=== PATIENT | male | born 1955 | race Asian ===

== ENCOUNTER 2016-07-09 08:00 | Emergency (ER) | payer OTHER ==
[~2016-07-09] VITALS: Ht 175.3 cm; Wt 77.3 kg
[2016-07-09 08:03] VITALS: Ht 175.3 cm; Wt 77.3 kg
[2016-07-09] MEDS ORDERED: VANCOMYCIN 1 GM (PMX) 250 ML IVPB STA (08:10)
[2016-07-09] MEDS ORDERED: SODIUM CHLORIDE 0.9% 1L BAG IV* STA (08:10)
[2016-07-09] MEDS ORDERED: PIPER-TAZO 3.375 GM IV (PMX) 100 ML IVPB STA (08:10)
[2016-07-09] MEDS ORDERED: CLINDAMYCIN 900 MG/D5W (PMX) 50 ML IVPB STA (08:10)
--- NOTE | 2016-07-09 08:59 | ERA ---
ER Documentation Chief Complaint Date/Time DATE: 07/09/16 TIME: 08:54 Chief Complaint BROUGHT IN VIA EMS FROM HOME DUE TO LEFT LEG WOUND AND HYPOGLYCEMIA HPI 60-year-old male who presents via EMS with multiple issues. It appears the patient was found laying in a parking garage of his apartment. EMS reports that his apartment was in shambles. His neighbors state that the patient has not been able to care for himself. Patient has significant wound to the left lower extremity that appears to be subacute and chronic. The patient was hypoglycemic in the field and given dextrose. The patient cannot provide adequate history. He does not know why he was in the parking garage. He denies any pain. He is somewhat limited with his history and his responses but is alert and oriented and conversive. He states that no symptoms currently. Remainder of HPI is extremely limited. ROS All systems reviewed and are negative except as per history of present illness. Allergies Allergies: Coded Allergies: No Known Allergy (Unverified , 07/09/16) PMhx/Soc Patient does not recall Smoking Status: Never smoker FmHx Patient does not recall Physical Exam Vitals Vital Signs Date Time Temp Pulse Resp B/P Pulse Ox O2 Delivery O2 Flow Rate FiO2 07/09/16 11:19 102 158/132 Nasal Cannula 07/09/16 09:30 94 20 140/89 99 Nasal Cannula 07/09/16 08:35 Nasal Cannula 2 07/09/16 08:03 98.8 99 18 101/53 96 Physical Exam General: Extremely disheveled, dirty however conversive and in no distress Head: Normocephalic, atraumatic. Eyes: Pupils equally reactive, EOM intact ENT: Moist mucous membranes Neck: Supple, no lymphadenopathy, No midline tenderness, deformities, step-offs to the cervical spine, full active and passive range of motion without midline pain. Respiratory: Lungs clear bilaterally, no distress Cardiovascular: RRR, no murmurs, rubs, or gallops Abdominal: Soft, non-tender, non-distended, no peritoneal signs : Deferred MSK: The patient's left lower extremity has significant swelling mostly distal to the knee around the morales and calf area. The patient has significant erythema , open wounds and drainage that appear to be subacute. He has a slightly dusky left foot with a temperature deficit though both bilateral feet are cooler. Very subtle pulses are noted to the left foot as well as the right foot though right is certainly more palpable than the left. The patient has erythema to the left lower extremity that streaks up towards the groin. Unilateral swelling is noted. Neurologic: Alert and oriented though slow to respond, moving all extremities, normal speech, no focal weakness, no cerebellar signs Skin: Left lower extremity as described above Psych: Normal mood Result Diagram: 07/09/16 0833 07/09/16 0833 Results 24 hrs Laboratory Tests Test 07/09/16 08:10 07/09/16 08:27 07/09/16 08:33 Arterial Blood HCO3 11.6mmol/L Arterial Blood Base Excess -12.9mmol/L Arterial Blood Oxygen Saturation 91.6mmHG Amadou Test N/A Arterial Blood Gas Puncture Site Right Brachial Arterial Blood Carboxyhemoglobin 0.3% Arterial Blood Date Drawn 07/09/2016 9:20:39 AM Arterial Blood Methemoglobin 0.6% Arterial Blood pCO2 (Temp correct) 24.4mmhg Arterial Blood pH (Temp corrected) 7.296 Arterial Blood pO2 (Temp corrected) 73.6mmHG Blood Gas A-a O2 Differential 133.2mmHg Blood Gas Critical Value Read Back DR VALLES Blood Gas Modality NASAL CANNULA Blood Gas Notified Time 07/09/2016 9:34:19 AM Blood Gas Notified Whom RT Blood Gas Specimen Source Blood arterial Blood Gas Temperature 37.0C FiO2 33.0% Oxyhemoglobin Percent 90.8% Total Hemoglobin 13.9g/dl Bedside Glucose 106mg/dL Activated Partial Thromboplast Time 36.9Sec Alanine Aminotransferase (ALT/SGPT) 93IU/L Albumin 2.3g/dl Albumin/Globulin Ratio 0.74 Alkaline Phosphatase 169IU/L Anion Gap 32 Aspartate Amino Transf (AST/SGOT) 201IU/L Band Neutrophils % 22.0% Blood Morphology Comment Blood Urea Nitrogen 74mg/dl C-Reactive Protein 42.3mg/dl Calcium Level 6.7mg/dl Carbon Dioxide Level 12mmol/L Chloride Level 85mmol/L Creatine Kinase IU/L Creatinine 5.11mg/dl Direct Bilirubin 2.00mg/dl Globulin 3.10g/dl Glucose Level 103mg/dl Hematocrit 43.0% Hemoglobin 14.6g/dl INR International Normalized Ratio 1.61 Indirect Bilirubin 0.5mg/dl Lactic Acid Level 10.3mmol/L Lipase 42U/L Lymphocytes # 1.610^3/ul Lymphocytes % 4.0% Mean Corpuscular Hemoglobin 32.3pg Mean Corpuscular Hemoglobin Concent 34.0g/dl Mean Corpuscular Volume 94.9fl Mean Platelet Volume 10.8fl Monocytes # 0.410^3/ul Monocytes % 1.0% Neutrophils # 29.510^3/ul Neutrophils % 73.0% Platelet Count 07605^3/UL Potassium Level 4.9mmol/L Prothrombin Time 19.3Sec Prothrombin Time Ratio 1.5 Red Blood Count 4.5310^6/ul Red Cell Distribution Width 13.6% Sodium Level 124mmol/L Total Bilirubin 2.5mg/dl Total Protein 5.4g/dl Troponin I 0.032ng/ml White Blood Count 40.410^3/ul Current Medications Medications (Trade) Dose Ordered Sig/Huan Route PRN Reason Start Time Stop Time Status Last Admin Dose Admin Sodium Chloride 2400 ml 2,400 ml BOLUS OVER 2 HOURS STAT IV* 07/09/16 08:10 07/09/16 08:13 DC 07/09/16 08:42 Vancomycin HCl 250 ml @ 125 mls/hr ONCE STAT IVPB 07/09/16 08:10 07/09/16 10:09 DC 07/09/16 09:52 Clindamycin HCl/ Dextrose 50 ml @ 50 mls/hr ONCE STAT IVPB 07/09/16 08:10 07/09/16 09:09 DC 07/09/16 09:13 Piperacillin Sod/ Tazobactam Sod (Zosyn 3.375gm/ 100 ml (Pmx)) 100 ml @ 100 mls/hr ONCE STAT IVPB 07/09/16 08:10 07/09/16 09:09 DC 07/09/16 08:41 Procedures/MDM EKG, MONITORS, & DIAGNOSTIC IMAGING: EKG: I reviewed and interpreted a 12-lead EKG. Rhythm: Normal sinus rhythm Ectopy: None Intervals: No abnormalities ST segments: No elevations or depressions T waves: No contiguous inversions Chest x-ray: I reviewed and interpreted a 1 view of the chest Mediastinum: No enlargement Cardiac silhouette: No cardiomegaly Airspace: Clear lung flores bilaterally without evidence of pneumothorax Bones: No evidence of fracture Triple-lumen catheter in good position CT brain: Dr Corea reports no acute process Left Lower extremity duplex: IMPRESSION: 1. No evidence of a deep vein thrombosis involving the left lower extremity. 2. 4.4 x 2.7 x 1.9 cm popliteal cyst. 3. Reactive lymph nodes in the left inguinal region. RPTAT: AACC XR Left leg: IMPRESSION: 1. The osseous elements appear intact. 2. Talar beaking. This can be associated with tarsal coalition. 3. Suggestion of subcutaneous edema, but with no discrete subcutaneous air identified. Left lower extremity arterial study: IMPRESSION: Diffuse monophasic waveforms in the left leg with markedly increased velocity in the left posterior tibial artery. No flow identified in the left dorsalis pedis. PROCEDURES: Peripheral IV Insertion: Indication: Difficult IV access Location: Right antecubital fossa Attempts: 1 Angiocath-type: 18-gauge The patient was consented prior to procedure and states understanding of risks, benefits, alternatives. Verbal consent was provided Sterile procedure was used to insert a peripheral IV. Indication, location and Angiocath-type are noted above. Ultrasound guidance was used to assist in the insertion of the Angiocath. Return of dark nonpulsatile blood was obtained, normal saline flushed through the Angiocath which was then secured to the skin. The patient tolerated the procedure well without complications. Emergency Bedside Ultrasound: The patient was verbally consented prior to procedure and understands the risks , benefits, and alternatives. The patient is agreeable to procedure and has given verbal consent. Indication: Peripheral IV insertion Probe Type: Linear Findings: Dynamic ultrasound utilized with compression technique with both linear and horizontal views. The images were printed off and placed on a paper document that will be scanned into the chart. The patient tolerated the procedure well and there were no complications. Central Line Note: Consent: I had a discussion with the patient and family regarding the procedure and discussed risks, benefits, alternatives. They have given verbal informed consent and a document was signed and placed in the chart. Indication: Critically ill patient requiring specialized vascular access for fluid or pressor management Location: Right IJ Procedure: Sterile procedure was observed throughout insertion of the central line. The insertion site was prepped with sterile solution. Ultrasound-guided identification of the vein was performed. Insertion of a needle into the vein was obtained with return of dark, nonpulsatile blood. The wire was then threaded through the needle without complication. The wire was then identified within the vein using ultrasound. A small skin incision was made, the needle was removed intact, dilation of the vein was performed and insertion of a triple lumen catheter was completed. The catheter was then sutured to the skin. All 3 ports rayray back and flushed without difficulty. A sterile dressing was applied. The patient tolerated the procedure well there were no complications. Emergency Bedside Ultrasound: The patient was verbally consented prior to procedure and understands the risks , benefits, and alternatives. The patient is agreeable to procedure and has given verbal consent. Indication: Central line Probe Type: Linear Findings: Dynamic ultrasound utilizing compressive technique with both linear and horizontal views, additional images showing wire within the venous system were obtained. The images were saved along with patient information on a paper chart to be scanned into EMR. The patient tolerated the procedure well and there were no complications. A post-line chest x-ray was ordered as indicated. LAB INTERPRETATION: Significant leukocytosis, elevated CRP, lactic acidosis, acute renal failure, hyperbilirubinemia, total CK out of range consistent with rhabdomyolysis MEDICAL DECISION MAKING: The patient presents with multiple issues including altered mental status, hypoglycemia and significant left lower extremity wound with decreased pulses to the foot. The patient is a very limited historian. The appearance of the patient's left lower extremity appears to be significantly subacute and chronic. However, he does have significant swelling and decreased pulses. Consider very proximal DVT with cerulea dolens, acute vascular occlusion, sepsis or necrotizing process as well. The patient's altered mental status could be secondary to seizure in the setting of hypoglycemia versus hyponatremia. The patient does not seem to have any evidence of trauma. He is moving all 4 extremities and though he is slow to respond he is nonfocal and ANO 3. CT imaging of the brain would be appropriate. No C-spine tenderness and the patient is able to localize. An extremely broad workup will be initiated to evaluate for sepsis, intracranial process, left lower extremity occlusion versus DVT. The patient clearly has evidence of significant infection to left lower extremity that will benefit from broad-spectrum antibiotics and screening for necrotizing process but again this seems to be a subacute process. Inpatient hospitalization is absolutely necessary. Social work consultation will also be needed given condition of the patient's home. ER COURSE: A 30/kg bolus of saline was provided. Broad-spectrum antibiotics in the form of vancomycin, Zosyn, clindamycin was provided. The patient was difficult access and a peripheral IV was placed. The patient's lactic acid came back significantly elevated. While the patient is not hypotensive anticipation of hypotension and severe sepsis and septic shock would be reasonable. A triple-lumen catheter was placed. The patient was consented. The patient's laboratory analysis is very concerning for early severe sepsis and likely septic shock. Likely source is the left lower extremity that appears to have a necrotizing process such as necrotizing fasciitis with possible compartment syndrome. The patient does not have pulses to the left lower foot but does appear to have some collateral flow to the posterior tibial vessel. While consideration for possible acute vascular occlusion would be reasonable I believe given the appearance of the patient's leg the setting of necrotizing fasciitis with compartment syndrome is more likely. I believe the patient would benefit from emergent surgical consultation. Please see timing section below but it should be clear that emergent surgical consultation was sought after immediately upon arrival. There was significant difficulty in finding the appropriate team to manage this patient. Ultimately the patient has been accepted to [place] given that this is the fastest route for the patient to have surgical consultation and be taken to the operating room. The patient does not have any pain. It should be noted the patient does have some mild hyperbilirubinemia with transaminitis. This is of unclear significance. Patient does not have abdominal pain I do not believe that acute cholecystitis is present in this patient. He has a clear more serious and emergent need for surgery of his left lower extremity. Therefore I believe that further imaging would only delay the patient's process at this time. Timing section for consultation: - Initial phone call to orthopedic surgery Dr. Hooker was made at approximately 9:47 AM. He stated that this case was outside of the scope of practice given that he cannot perform amputation. I again spoke to him at 1028 to discuss the case further. He cannot take this case. - I had a phone call with Dr. Parr, orthopedic surgeon not supervisor electronic testing, initial phone call at 9:58 AM and I spoke to him at 10:28 AM. He is not available and is performing surgery at another site. - Initial phone calls to vascular surgeon Dr. Uriarte at 9:45 AM. I spoke to him at 10:23 AM. He is performing surgery at another site - A phone call to Dr. Weinberg at 9:45 AM, multiple phone calls, no callback at this time. - I had multiple conversations with Dr. Dumont, [facility]. He initially gave me authorization number of [id number]. We had multiple conversations because I am unable to find a surgeon for this case. He has told me that the ER physician and surgeon at [facility] would not accept the patient because they felt the patient was unstable. However I did not speak to these providers. - I was able to speak to my general surgeon Dr. Morales. He is currently in the operating room. I spoke to him at 10:41 AM. He states that he would be able to manage uncomplicated necrotizing fasciitis however given that the patient is pulseless he does not feel comfortable taking the patient to the operating room without a vascular surgeon. I do not have a vascular surgeon call panel. For this reason Dr. Morales cannot manage this case. Additionally he is with a critical patient in the OR for the next 2 hours. - I again spoke to [facility] and spoke to a Dr. Linda, I explained that we would need to transfer the patient and that he needs to recontact the physicians at [facility]. I would like to speak to them personally as this may be the best option for the patient. He has finally accepted the patient at 10:41 AM the patient will be transferred directly to the [place] ER for evaluation - I attempted to contact another vascular surgeon Dr. Poole at 10:27 AM. He is not available. Laboratory analysis, imaging were placed on the disc. The patient has transported arrival at 12:13 PM awaiting to take the patient to [facility]. The patient is being transferred for higher level of care for surgical, emergent management of necrotizing fasciitis with likely compartment syndrome of the left lower extremity. The patient has evidence of rhabdomyolysis with elevated total CK, acute renal failure. Continue aggressive fluid management. I believe that heparin bolus and drip are contraindicated in this patient. The patient requires emergent surgery that will likely require aggressive care. I believe that the patient's decreased pulses are secondary to compartment syndrome rather than acute vascular occlusion. At this time I feel the risks outweigh the benefits. Additionally the patient has early coagulopathy with an elevated INR. Prior to transfer the patient was conversive, blood pressure is holding stable. He did not require intubation or pressors at this time. I kept the patient and/or family informed of laboratory and diagnostic imaging results throughout the emergency room course. DISPOSITION PLAN: Transfer to [facility] Sepsis Documentation: Patient's infectious symptoms have not stabilized and the patient is at risk of rapid decompensation. The patient will be admitted for careful hydration, antibiotic therapy, and infectious source control. SEVERE SEPSIS CRITERIA: Infectious source: Necrotizing fasciitis of left lower extremity End organ damage indicated by: [Lactate > 2.0 mmol/L Acute renal failure SEPSIS MANAGEMENT Time of recognition of severe sepsis/septic shock: Upon arrival 3 HOUR BUNDLE Blood cultures x 2 before broad-spectrum antibiotics: Yes 30 ml/kg NS bolus Completed Initial lactate 10.3 Repeat lactate pending SEPTIC SHOCK ASSESSMENT: lactic acid > 4.0 No persistent hypotension (SBP < 90 or 40 mmHg drop, MAP < 65) despite 30 mL/kg IV fluid bolus VOLUME REASSESSMENT FOR SEPTIC SHOCK: Reevaluation Time: 12 PM Temperature of 98.2 heart rate of 102, respiratory rate of 20, blood pressure 102/50, saturation 99 on supplemental nasal cannula Heart Regular rate & rhythm Lungs No crackles Skin Warm & dry Cap Refill Less than 2 seconds Peripheral pulses Radially present PERSISTENT HYPOTENSION TREATMENT: Comfort care No Central line right IJ placed as documented above. Vasopressor started Not required I considered further perfusion assessment with CVP measurement, SCVO2, bedside ultrasound volume assessment, passive leg raise, trial of further fluid bolus. And proceeded with 30 ml/kg fluid bolus of NSS, broad spectrum antbiotics, and admission. CRITICAL CARE Critical care time 57 minutes Emergent fluid management while maintaining close respiratory support. Provision of immediate and broad-spectrum antibiotic therapy. Simultaneous assessment for possible sources in order to direct targeted therapy. Consideration for invasive and chemical support to prevent cardiopulmonary collapse. Critical care time is independent of procedures performed. Departure Diagnosis: Primary Impression: Severe sepsis Additional Impressions: Necrotizing fasciitis Compartment syndrome of left lower extremity Qualified Code: T79.A22A - Compartment syndrome of left lower extremity, initial encounter Lactic acidosis Hypoglycemia Acute renal failure Qualified Code: N17.9 - Acute renal failure, unspecified acute renal failure type Rhabdomyolysis Qualified Code: M62.82 - Non-traumatic rhabdomyolysis Condition: Critical JULISA VALLES MD Jul 09, 2016 08:59
[2016-07-09 09:03] LABS: HEMOGLOBIN 14.6 g/dl (14.0-18.0); MEAN CORPUSCULAR HEMOGLOBIN 32.3 pg (29.0-33.0); MEAN CORPUSCULAR VOLUME 94.9 fl (82.0-101.0); MEAN PLATELET VOLUME 10.8 fl (7.4-10.4); PLATELET COUNT 139 10^3/UL (140-440); RED BLOOD COUNT 4.53 10^6/ul (4.70-6.10); RED CELL DISTRIBUTION WIDTH 13.6 % (11.5-14.5); UNCORRECTED WBC 40.4 10^3/ul (4.8-10.8); WHITE BLOOD COUNT 40.4 10^3/ul (4.8-10.8)
--- NOTE | 2016-07-09 09:06 | RADRPT ---
PROCEDURE: US DVT. CLINICAL INDICATION: Open wound, leg swelling. Evaluate for deep venous thrombosis. TECHNIQUE: Multiple longitudinal and transverse images of the left lower extremity veins were obta ined with escobar scale and color Doppler imaging. 2D grayscale measurements with compression, color D oppler flow, and augmentation was performed. The calf veins were interrogated as well. COMPARISON: No prior studies are available for comparison. FINDINGS: The left common femoral, superficial femoral and popliteal veins are normally compressible throughou t. Color flow demonstrates normal filling of the vessel. Normal waveforms are visualized and there is normal response to augmentation. There are reactive lymph nodes in the left inguinal region. There is a 4.4 x 2.7 x 1.9 cm cystic ar ea in the popliteal fossa consistent with a popliteal cyst. IMPRESSION: 1. No evidence of a deep vein thrombosis involving the left lower extremity. 2. 4.4 x 2.7 x 1.9 cm popliteal cyst. 3. Reactive lymph nodes in the left inguinal region. RPTAT: AACC Physician Raegan Date Time Electronically viewed and signed by Physician Raegan on 07/09/2016 09:06 /
[2016-07-09 09:13] LABS: CONDITION 1; SUSPECT 1
[2016-07-09 09:17] LABS: ALBUMIN 2.3 g/dl (3.3-4.9)
[2016-07-09 09:18] LABS: INR 1.61; POTASSIUM 4.9 mmol/L (3.5-5.1); PROTIME 19.3 Sec (12.2-14.2); PT RATIO 1.5
[2016-07-09 09:19] LABS: PARTIAL THROMBOPLASTIN TIME 36.9 Sec (25.0-35.0)
[2016-07-09 09:20] LABS: ALBUMIN/GLOBULIN RATIO 0.74; BILIRUBIN,INDIRECT 0.5 mg/dl (0-1.1); BILIRUBIN,TOTAL 2.5 mg/dl (0.2-1.3); TOTAL PROTEIN 5.4 g/dl (6.1-8.1)
[2016-07-09 09:21] LABS: CALCIUM 6.7 mg/dl (8.4-10.2)
[2016-07-09 09:27] LABS: CREATININE 5.11 mg/dl (0.61-1.24)
[2016-07-09 09:32] LABS: TROPONIN-I 0.032 ng/ml (0.00-0.12)
[2016-07-09 09:34] LABS: AADO2 Arterial 133.2 mmHg (7.0-24.0); Arterial Base Excess -12.9 mmol/L (-3.0-3); Arterial COHb 0.3 % (0.0-3.0); Arterial Fraction of Oxyhgb 90.8 % (93.0-99.0); Arterial HCO3 11.6 mmol/L (22.0-26.0); Arterial MetHb 0.6 % (0.0-1.5); Arterial Total Hemglobin 13.9 g/dl (12.0-18.0); MODE NASAL CANNULA
--- NOTE | 2016-07-09 09:44 | RADRPT ---
PROCEDURE: US Lower extremity arterial. CLINICAL INDICATION: Cold left foot, pain TECHNIQUE: Multiple sonographic images of the left lower extremity arteries were obtained utilizin g grayscale, color-flow and doppler imaging. The images were reviewed on a PACS workstation. COMPARISON: None. FINDINGS: Velocities and waveforms were obtained as described below. RIGHT LEG: Right posterior tibial artery: 63 cm/s; monophasic waveforms Right dorsalis pedis artery: 32 cm/s; biphasic waveforms LEFT LEG: Left common femoral artery: 203 cm/s; monophasic waveforms Left proximal superficial femoral artery: 114 cm/s; monophasic waveforms Left mid superficial femoral artery: 165 cm/s; monophasic waveforms Left distal superficial femoral artery: 141 cm/s; monophasic waveforms Left popliteal artery: 86 cm/s; monophasic waveforms Left posterior tibial artery: 5.8 cm/s; monophasic waveforms Left dorsalis pedis artery: No flow RPTAT: AA IMPRESSION: Diffuse monophasic waveforms in the left leg with markedly increased velocity in the left posterior tibial artery. No flow identified in the left dorsalis pedis. .Miles Mo MD MD Date Time Electronically viewed and signed by .Miles Mo MD, MD on 07/09/2016 09:43 .S/
[2016-07-09 09:57] LABS: LYMPHOCYTES # 1.6 10^3/ul (0.8-2.9); MONOCYTE # 0.4 10^3/ul (0.3-0.9); NEUTROPHIL # 29.5 10^3/ul (1.6-7.5)
--- NOTE | 2016-07-09 11:14 | RADRPT ---
PROCEDURE: XR Left Tibia-Fibula CLINICAL INDICATION: Left lower extremity wound evaluate for subcutaneous emphysema TECHNIQUE: AP and lateral radiographs were submitted COMPARISON: None FINDINGS: Osseous structures: appear well mineralized and intact with no fracture or destructive process iden tified. A talar beak is identified. Joint spaces: are well maintained, with no significant spurring, erosion or joint effusion evident. Soft tissues: There is soft tissue prominence along with the suggestion of edema within the subcutan eous fat but no subcutaneous air is identified. IMPRESSION: 1. The osseous elements appear intact. 2. Talar beaking. This can be associated with tarsal coalition. 3. Suggestion of subcutaneous edema, but with no discrete subcutaneous air identified. Physician Carrol Date Time Electronically viewed and signed by Physician Carrol on 07/09/2016 11:13 /
--- NOTE | 2016-07-09 11:16 | RADRPT ---
PROCEDURE: XR Chest AP portable CLINICAL INDICATION: Post central line placement TECHNIQUE: An AP portable radiograph of the chest was submitted. COMPARISON: None. FINDINGS: Support Hardware: A right jugular central venous catheter is in place with the tip projecting to the superior vena cava. Cardiovascular: The cardiovascular silhouette appears unremarkable, except for aortic tortuosity. Lung Flores: The lung flores appear clear with no nodule, alveolar infiltrate, for a interstitial pr ominence evident. Pleural Spaces: No pneumothorax or pleural effusion is identified. Osseous Structures: The osseous structures appear intact. Soft Tissues: The soft tissues appear generous. IMPRESSION: 1. Right jugular central venous catheter in place with the tip projecting to the superior vena cava . 2. Aortic tortuosity. 3. Otherwise, unremarkable portable chest. Physician Carrol Date Time Electronically viewed and signed by Physician Carrol on 07/09/2016 11:15 /
[2016-07-09 12:13] VITALS: TEMP 98.2
--- NOTE | 2016-07-09 12:32 | RADRPT ---
PROCEDURE: CT Brain without contrast. CLINICAL INDICATION: Headache. Sepsis. TECHNIQUE: A CT of the brain without contrast was performed utilizing axial sections from the skul l base through the vertex. The patient was scanned without intravenous contrast enhancement. Sagitta l and coronal reformatted images were obtained using the data from the axial images. Total exam DLP is unobtainable. CTDIvol is unobtainable. One or more of the following dose reduction techniques were used: Automated exposure control, adjustment of the mA and/or kV according to patient size, use of iterative reconstruction technique. COMPARISON: None available FINDINGS: There is normal escobar-white matter differentiation. The ventricles and cisterns are normal. There is no intracranial hemorrhage or space-occupying lesion. There is no skull fracture or lytic lesion. IMPRESSION: 1. Normal noncontrast CT scan of the brain. RPTAT: QQ .Johnnie Corea MD, MD Date Time Electronically viewed and signed by .Johnnie Corea MD, on 07/09/2016 12:31 .R/
[2016-07-09 12:35] VITALS: BP 103/63; PULSE 113; RESP 26
[2016-07-09 16:48] LABS: LH ANALYZER COMMENTS 1
== END 2016-07-09 12:40 | disposition short-term general hospital (02) ==
LOC: E/R 08:00
DX: T79.A22A Traumatic compartment syndrome of left lower extremity, initial encounter (principal); E87.2 Acidosis; M62.82 Rhabdomyolysis; N17.9 Acute kidney failure, unspecified; R65.20 Severe sepsis without septic shock; R40.2142 Coma scale, eyes open, spontaneous, at arrival to emergency department; R40.2242 Coma scale, best verbal response, confused conversation, at arrival to emergency department; R40.2362 Coma scale, best motor response, obeys commands, at arrival to emergency department; R51 Headache
CPT/HCPCS: 36415; 36556; 36600; 70450; 71010; 73590; 76937; 80053; 82550; 82553; 82803; 82962; 83605; 83690; 84484; 85025; 85610; 85730; 86140; 87040; 93005; 93926; 93971; 96374; 96375; 99291; J2543; J3370; J7030